=== PATIENT | female | born 1945 | race African-American/Black ===

== ENCOUNTER 2021-04-01 16:55 | Emergency (ER) | payer MEDICARE ==
[~2021-04-01] VITALS: Ht 165.1 cm; Wt 56.0 kg
[~2021-04-01 16:55] MED LIST: KEPP500 MT
[2021-04-01 19:55] VITALS: BP 108/70
== END 2021-04-01 20:40 | disposition home or self-care (01) ==
LOC: ER 16:55
DX: S72.402A Unspecified fracture of lower end of left femur, initial encounter for closed fracture (principal); F03.90 Unspecified dementia, unspecified severity, without behavioral disturbance, psychotic disturbance, mood disturbance, and anxiety; V03.90XA Pedestrian on foot injured in collision with car, pick-up truck or van, unspecified whether traffic or nontraffic accident, initial encounter; Y93.89 Activity, other specified; Y92.488 Other paved roadways as the place of occurrence of the external cause
CPT/HCPCS: 29505; 73562; 73590; 99284